=== PATIENT | female | born 1980 | race Caucasian/White ===

== ENCOUNTER → 2016-04-03 | Outpatient (CLI) | payer BC ==
[2015-08-17 04:40] VITALS: BP 127/59
[~2016-04-03] MED LIST: CELE100C PO; CYCL10TA2 PO; HYDR-971 PO; IOHEXOL 180 MG/ML 10 ML VIAL. ONE; methylPREDNISolone ACETATE 40 MG/ML VIAL. ONE; methylPREDNISolone ACETATE 80 MG/ML VIAL. ONE
--- NOTE | 2016-04-03 12:40 | PAIN ---
DATE OF SERVICE: 04/03/2016 PROGRESS NOTE DIAGNOSES: Lumbar radiculopathy with lumbar degenerative disk disease. HISTORY OF PRESENT ILLNESS: The patient is a 35-year-old female who returns for followup status post lumbar epidural steroid injection x 1. The patient reports approximately 20% improvement at baseline with the first injection, still with some significant pain in the low back, bilateral lower extremities, right side greater than left with some numbness in the right foot as she has had previously. The patient reports that she has been having some increased mobility, but the pain is still fairly significant. The patient did do some physical therapy prior to her injections and is still doing the physical therapy exercises that she was taught at that time. The patient reports no new motor or sensory deficits, no new bowel or bladder incontinence. The patient's pain is at 8-9 on a scale of 10 currently, it is sharp alternating with numbness and tingling in the legs and the feet, especially on the right side. The patient's old chart was reviewed as her current medication regimen updated. Current review of systems updated today as well. PHYSICAL EXAMINATION: VITAL SIGNS: Today, the patient's blood pressure is 125/83, pulse 88, respirations are 18, temperature is 98.4 degrees Fahrenheit and height is 5 feet 1 inch and weighs 135 pounds. GENERAL: The patient is awake, alert, oriented, appropriate, very pleasant demeanor. HEENT: Shows normocephalic, atraumatic. Extraocular movements are intact and symmetrical. Oral cavity shows mucous membranes are moist and pink. Dentition is intact. NECK: Shows anterior throat supple without palpable lymphadenopathy noted. Swallow reflex is symmetrical. CHEST: Shows normal on inspection. Breath sounds are clear to auscultation bilaterally. HEART: Shows S1 and S2 clear. ABDOMEN: Soft, nontender, and nondistended. BACK: Shows spine grossly in midline. Lumbar paraspinous muscle shows some mild tenderness with palpation, but only diffusely in the lower lumbar distribution, is firm and symmetrical. No tenderness over the sacrum or sacroiliac regions. The patient shows good rotation and motion both laterally as well as extension and flexion of lumbar spine without difficulty. EXTREMITIES: Lower extremities show deep tendon reflexes at 2+ in the patellar tendons. Motor exam is strong with approximately 4 on a scale of 5 with right dorsiflexion and extension and 5/5 on the left. PLAN: Options were discussed with the patient. We will proceed with a second lumbar epidural steroid injection today with fluoroscopic guidance. Risks were again discussed including, but not limited to bleeding, infection, possibility of epidural hematoma and subsequent neurologic compromise, dural puncture, headaches, spinal cord and/or nerve damage, side effects of steroid medication and poor results regarding pain control. The patient understands and wished to proceed. The patient will return to clinic in approximately 2 weeks for followup. She was counseled on return appointment, activity level and side effects to be aware of. DIAGNOSES: Lumbar radiculopathy with lumbar degenerative disk disease. PROCEDURES: Lumbar epidural steroid injection using translaminar approach at the L5-S1 level with fluoroscopic guidance under sterile prep and drape using local anesthesia. MEDICATIONS INJECTED: 120 mg of Depo-Medrol plus 10 mL of preservative-free normal saline and 2 mL of Isovue for contrast. CONDITION AT DISCHARGE: Stable. The patient tolerated the procedure well, had no complications. JASPAL KLEIN MD DR: PIOTR/edmar JOB#: [id number] / [id number]
== END | disposition home or self-care (01) ==
LOC: PNCL 09:33
PROVIDERS: ATTEND Anesthesiology
DX: M51.16 Intervertebral disc disorders with radiculopathy, lumbar region (principal)
CPT/HCPCS: 62323; J1030; J1040

== ENCOUNTER → 2016-04-17 | Outpatient (CLI) | payer BC ==
[2015-08-17 04:40] VITALS: BP 127/59
--- NOTE | 2016-04-17 21:33 | PAIN ---
DATE OF SERVICE: 04/17/2016 DIAGNOSES: Lumbar radiculopathy with lumbar degenerative disk disease. HISTORY OF PRESENT ILLNESS: The patient is a 35-year-old female who returns for followup status post lumbar epidural steroid injections x 2. The patient reports about 70% improvement for about a week and the pain returns, ____ close to baseline in the low back and bilateral lower extremities, again worse on the right than the left, but present bilaterally. The patient reports during the week though she is doing very well, has increased her activity with greater ease and comfort and was sleeping better at night, but then the pain returned over the past few days. The pain is becoming almost to baseline. The patient rates it as 8-9 on a scale of 10, it is sharp alternating with numbness and aching pain in low back radiating into the posterior gluteus, posterior thighs, posterior lower legs, worse with standing and walking as well as prolonged sitting greater than 15-20 minutes. No new motor or sensory deficits, however, no new bowel or bladder incontinence. Her old MRI was reviewed with her. We discussed some options after today's injection if not significantly improved. PHYSICAL EXAMINATION: VITAL SIGNS: The patient's blood pressure 132/93, pulse is 111, respirations 18, temperature 99 degrees, height is 5 feet 1 inch. Weight is 137 pounds. GENERAL: The patient is awake, alert, oriented, appropriate, very pleasant demeanor. HEENT: Head shows normocephalic, atraumatic. Extraocular movements are intact, symmetrical. Oral cavity, mucous membranes are moist and pink. Dentition is intact. NECK: Shows anterior throat supple without palpable lymphadenopathy noted. Swallow reflex is symmetrical. CHEST: Shows normal on inspection. Breath sounds are clear to auscultation bilaterally. HEART: Shows S1 and S2 clear. ABDOMEN: Soft, nontender, nondistended. No palpable organomegaly is noted. BACK: Shows spine grossly midline. Lumbar paraspinous muscle shows some moderate tenderness in the low lumbar distribution only diffusely, but it is symmetrical in appearance. No evidence of atrophy or hypertrophy. The patient shows good rotation and motion both laterally as well as extension and flexion without difficulty or pain reported. EXTREMITIES: Lower extremities show deep tendon reflexes 2+ in the patellar, 1+ tendo-calcaneus tendons are equal. Motor exam is strong with approximately 4 on a scale of 5 with right dorsiflexion and extension and 5/5 on the left. Quadriceps and hamstring flexion is 5/5 bilaterally. Peripheral pulses are 1+ posterior tibial and dorsalis pedis pulses. No peripheral edema is noted bilaterally. PLAN: Options were discussed with the patient at this time. Patient's old chart was reviewed as her current medication regimen and updated. Current review of systems updated today as well. We will proceed with a third lumbar epidural steroid injection today with fluoroscopic guidance. Risks were again discussed including, but not limited to bleeding, infection, possibility of epidural hematoma, subsequent neurologic compromise, dural puncture, headaches, spinal cord and/or nerve damage, side effects of steroid medication and poor results regarding pain control. The patient understands and wishes to proceed. The patient will return to clinic in approximately 2 weeks for followup. Also, we will order physical therapy for water therapy as well as traction of the lumbar spine, stretching and strengthening and massage techniques. The patient was counseled as to activity levels as well as side effects to be aware of and physical therapy regimen to be started soon. Patient will follow up as instructed. DIAGNOSIS: Lumbar radiculopathy with lumbar degenerative disk disease. PROCEDURE: Lumbar epidural steroid injection using translaminar approach at the L5-S1 level with fluoroscopic guidance under sterile prep and drape using local anesthesia. MEDICATIONS INJECTED: Depo-Medrol 120 mg plus 10 mL of preservative-free normal saline and 2 mL Isovue contrast. CONDITION AT DISCHARGE: Stable. The patient tolerated the procedure well, had no complications. JASPAL KLEIN MD DR: PIOTR/edmar JOB#: [id number] / [id number]
== END | disposition home or self-care (01) ==
LOC: PNCL 09:07
PROVIDERS: ATTEND Anesthesiology
DX: M51.16 Intervertebral disc disorders with radiculopathy, lumbar region (principal)
CPT/HCPCS: 62323; J1030; J1040; 62327

== ENCOUNTER → 2016-07-10 | Outpatient (CLI) | payer BC ==
[2015-08-17 04:40] VITALS: BP 127/59
[~2016-07-10] MED LIST changes: -IOHEXOL 180 MG/ML 10 ML VIAL. ONE; -methylPREDNISolone ACETATE 40 MG/ML VIAL. ONE; -methylPREDNISolone ACETATE 80 MG/ML VIAL. ONE
--- NOTE | 2016-07-10 13:26 | KCIC ---
PROCEDURE Complete pelvic ultrasound. HISTORY Menorrhagia, left lower quadrant pain. TECHNIQUE Real-time ultrasound imaging of the pelvis using transabdominal and transvaginal window is performed. COMPARISON None. FINDINGS Uterus measures 8.6 x 5.4 x 4.3 cm. No focal abnormality. The uterus is retroverted. Small nabothian cysts are identified. The endometrial stripe measures 11 millimeters. This is likely normal for menstrual phase. There is trace pelvic free fluid. Normal blood flow in the ovaries. The right ovary measures 3 x 1.7 x 2.2 cm. The left ovary measures 2.7 x 1.6 x 1.7 cm. Dominant left ovarian follicle measures up to 1.5 cm. IMPRESSION 1. Small nabothian cysts. 2. Trace pelvic free fluid. 3. The endometrial stripe is normal. 4. Retroverted uterus. Electronically signed by: Pillo Carter MD (Jul 10, 2016 13:25:20)
== END | disposition home or self-care (01) ==
LOC: KCIC US 09:48
PROVIDERS: ATTEND Physician Assistant Medical
DX: N88.8 Other specified noninflammatory disorders of cervix uteri (principal); N92.0 Excessive and frequent menstruation with regular cycle
CPT/HCPCS: 76830; 76856

== ENCOUNTER → 2017-11-19 | Outpatient (CLI) | payer BC, OTHER ==
[2015-08-17 04:40] VITALS: BP 127/59
--- NOTE | 2017-11-19 13:57 | KCIC ---
EXAM: Left clavicle, 2 views. HISTORY: Pain. COMPARISON: None. FINDINGS: 2 views of the left clavicle are obtained. There is no fracture, dislocation or subluxation. There is a suspected small bone island within the glenoid. IMPRESSION: No acute osseous finding. Electronically signed by: Cherelle Farias MD (11/19/2017 1:53 PM) [id number]
== END | disposition home or self-care (01) ==
LOC: KCIC 13:34
PROVIDERS: ATTEND Physician Assistant Medical
DX: M89.8X1 Other specified disorders of bone, shoulder (principal); F17.200 Nicotine dependence, unspecified, uncomplicated; Z88.6 Allergy status to analgesic agent; Z88.8 Allergy status to other drugs, medicaments and biological substances
CPT/HCPCS: 73000

== ENCOUNTER → 2018-01-01 | Outpatient (CLI) | payer BC ==
[2015-08-17 04:40] VITALS: BP 127/59
--- NOTE | 2018-01-15 16:25 | EKG ---
[facility] [address] [place] [id number] Test Date: 2018-01-15 Test Time: 14:06:13 Pat Name: GLADIS MEJIA Department: Room: Gender: Food Handler: : 1980 Requested By: CASEY FERREIRA Order Number: [id number] Reading MD: Andrez Hammonds Interpretive Statements Patient was in sinus rhythm throughout the monitoring period with heart rate ranging from 46 bpm 256 bpm with an average of 80 bpm. No significant arrhythmias were noted. Patient reported symptoms of chest pain, shortness of breath and palpitations that did not correlate with any arrhythmias or ST/T changes. CONCLUSIONS Holter monitor did not show any significant arrhythmias. Electronically Signed On 01-16-2018 11:37:34 CDT by Andrez Hammonds
== END | disposition home or self-care (01) ==
LOC: EKG 13:22
PROVIDERS: ATTEND Physician Assistant Medical
DX: I49.8 Other specified cardiac arrhythmias (principal); R53.83 Other fatigue
CPT/HCPCS: 93225; 93226